=== PATIENT | male | born 1990 | race Hispanic/Latino ===

== ENCOUNTER 2017-10-18 09:31 | Emergency (ER) | payer OTHER ==
[2017-10-18] MEDS ORDERED: KETOROLAC TROMETHAMINE 30MG/ML ONE (10:25)
== END 2017-10-18 13:26 | disposition home or self-care (01) ==
LOC: EEVIPCON 09:31 → EDH 09:31
DX: S13.4XXA Sprain of ligaments of cervical spine, initial encounter (principal); S23.3XXA Sprain of ligaments of thoracic spine, initial encounter; S60.221A Contusion of right hand, initial encounter; S00.03XA Contusion of scalp, initial encounter; I10 Essential (primary) hypertension; Z72.0 Tobacco use; Y04.0XXA Assault by unarmed brawl or fight, initial encounter; Y93.89 Activity, other specified; Y92.89 Other specified places as the place of occurrence of the external cause; Y99.8 Other external cause status
CPT/HCPCS: 70100; 70450; 72040; 72070; 73130; 73562; 96372; 99284; J1885

== ENCOUNTER 2019-08-31 18:41 | Emergency (ER) | payer OTHER | END 2019-08-31 19:52 | disposition home or self-care (01) | LOC: EDH 18:41 | DX: F41.1 Generalized anxiety disorder (principal); R05 Cough; J02.9 Acute pharyngitis, unspecified; M79.10 Myalgia, unspecified site ==

== ENCOUNTER 2022-05-19 18:45 | Emergency (ER) | payer OTHER ==
[~2022-05-19] VITALS: Ht 165.1 cm; Wt 76.7 kg
[2022-05-19] MEDS ORDERED: IBUP-2070 PO (20:30)
[2022-05-19] MEDS ORDERED: SULF1TAB42 PO (20:30)
[2022-05-19] MEDS: KETOROLAC 30MG VIAL (30MG/ML) IM ONE (20:44)
[2022-05-19] MEDS: SULFAMETHOX-TMP DS 800/160 TAB PO SCH (20:44)
[2022-05-19 21:20] VITALS: BP 118/64
== END 2022-05-19 21:05 | disposition home or self-care (01) ==
LOC: EDH 18:45
DX: L02.31 Cutaneous abscess of buttock (principal)
CPT/HCPCS: 99283; 10060; 96372; J1885

== ENCOUNTER 2024-07-11 18:02 | Emergency (ER) | payer BC ==
[~2024-07-11] VITALS: Ht 165.1 cm; Wt 70.3 kg
[~2024-07-11 18:02] MED LIST: IBUP-2070 PO; IBUP-2077 PO; SULF1TAB42 PO
--- NOTE | 2024-07-11 18:35 | HMCIMG ---
LEFT SHOULDER RADIOGRAPHS - 2-3 VIEWS INDICATION: Pain COMPARISON: 09/30/2023 FINDINGS: No evidence for acute fracture or dislocation. Acromioclavicular and glenohumeral alignments are well maintained. Visible portions of the left clavicle are intact. Stable lateral left clavicular fixation plate and screws. IMPRESSION: No evidence for fracture or dislocation.
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
[2024-07-11] MEDS: acetaMINOPHEN 500 MG TABLET PO ONE (18:52)
[2024-07-11 19:10] VITALS: BP 126/87; PULSE 72; RESP 18; TEMP 97.5; O2SAT 98
== END 2024-07-11 19:13 | disposition home or self-care (01) ==
LOC: EDH 18:02
DX: M25.512 Pain in left shoulder (principal); I10 Essential (primary) hypertension
CPT/HCPCS: 73030; 99283